=== PATIENT | male | born 1950 ===

== ENCOUNTER 2017-06-27 10:00 | Inpatient (IN) | payer OTHER ==
[~2017-06-27] VITALS: Ht 175.3 cm; Wt 72.6 kg
[2017-06-27] MEDS ORDERED: ATENOLOL50 MG PO (14:01)
[2017-06-27] MEDS ORDERED: ULORIC40 MG PO (14:01)
== END 2017-07-06 17:53 | disposition home or self-care (01) | DRG 331 ==
LOC: SURG 07-03 09:46 → O/R 07-03 09:46 → SURH 07-03 10:00 → SURG 07-03 18:58
PROVIDERS: Colon & Rectal Surgery
PROC: 0DTP4ZZ Resection of Rectum, Percutaneous Endoscopic Approach (ICD-10-PCS; 2017-07-03)
PROC: 0DTN4ZZ Resection of Sigmoid Colon, Percutaneous Endoscopic Approach (ICD-10-PCS; 2017-07-03)
PROC: 0DTQ4ZZ Resection of Anus, Percutaneous Endoscopic Approach (ICD-10-PCS; 2017-07-03)
PROC: 0D1N4Z4 Bypass Sigmoid Colon to Cutaneous, Percutaneous Endoscopic Approach (ICD-10-PCS; 2017-07-03)
PROC: 07TC4ZZ Resection of Pelvis Lymphatic, Percutaneous Endoscopic Approach (ICD-10-PCS; principal; 2017-07-03 17:15)
DX: C20 Malignant neoplasm of rectum (principal); I11.9 Hypertensive heart disease without heart failure; R59.0 Localized enlarged lymph nodes

== ENCOUNTER → 2018-08-23 | Day surgery (SDC) | payer OTHER ==
[~2018-08-23] MED LIST: ATENOLOL50 MG PO; ULORIC40 MG PO
== END | disposition home or self-care (01) ==
LOC: ADM 08-20 11:15 → AMB-ENDOS 08-20 11:15
DX: C20 Malignant neoplasm of rectum (principal)